=== PATIENT | male | born 1995 | race Caucasian/White ===

== ENCOUNTER 2017-04-14 20:58 | Inpatient (IN) | payer SELFPAY ==
[~2017-04-14] VITALS: Ht 177.8 cm; Wt 68.2 kg
[2017-04-14] MEDS ORDERED: ZOLPIDEM TARTRATE 10 MG TABLET PO PRN (22:00)
[2017-04-14] MEDS ORDERED: DiphenhydrAMINE HCL 50 MG/ML VIAL IM ONE (22:00)
[2017-04-14] MEDS ORDERED: HALOPERIDOL 5 MG TABLET PO PRN (22:00)
[2017-04-14] MEDS ORDERED: LORazepam 2 MG TABLET PO PRN (22:00)
[2017-04-14] MEDS ORDERED: LORazepam 2 MG/ML VIAL IM ONE (22:00)
[2017-04-14] MEDS ORDERED: HALOPERIDOL LACTATE 5 MG/ML VIAL IM ONE (22:00)
[2017-04-14 22:09] LABS: APPEARANCE,URINE CLEAR (CLEAR); BILIRUBIN,URINE NEGATIVE (NEGATIVE); GLUCOSE, URINE (UA) NEGATIVE (NEGATIVE); KETONES,URINE NEGATIVE (NEGATIVE); LEUKOCYTE ESTERASE ,URINE NEGATIVE (NEGATIVE); NITRATE,URINE NEGATIVE (NEGATIVE); OCCULT BLOOD,URINE NEGATIVE (NEGATIVE); PROTEIN,URINE NEGATIVE (NEGATIVE); UROBILINOGEN,URINE 0.2 mg/dL (<=1.0)
[2017-04-14 23:05] LABS: BASOPHILS % (AUTO) 0.2 % (0.0-2.0); HEMATOCRIT 35.7 % (41-53); HEMOGLOBIN 11.3 g/dL (13.5-17.5); LYMPHOCYTES # (AUTO) 1.6 K/uL (1.0-4.8); LYMPHOCYTES % (AUTO) 21.9 % (22.0-44.0); MEAN CORPUSCULAR HEMOGLOBIN 21.1 pg (26.0-34.0); MEAN CORPUSCULAR HGB CONC 31.5 G/dL (31.0-37.0); MEAN CORPUSCULAR VOLUME 67 fL (80-100); MONOCYTES # (AUTO) 0.4 K/uL (0.1-1.0); NEUTROPHILS # (AUTO) 5.2 K/uL (1.8-7.7); NEUTROPHILS % (AUTO) 69.9 % (40.0-70.0); PLATELET COUNT (AUTO) 159 K/uL (150-450); RED BLOOD CELL COUNT(AUTO) 5.34 MIL/uL (4.50-5.90); RED CELL DISTRIBUTION WIDTH 16.7 % (11.5-14.5)
[2017-04-14 23:15] LABS: ANION GAP 9 mmol/L (8-16); CALCIUM, TOTAL 8.4 mg/dL (8.8-10.5); CARBON DIOXIDE 26 mmol/L (22-29); CHLORIDE 109 mmol/L (98-107); GLOMERULAR FILTR. RATE CALC > 60 mL/min (>60); GLUCOSE,RANDOM 99 mg/dL (70-110); POTASSIUM 3.6 mmol/L (3.5-5.1); SODIUM SERUM 144 mmol/L (136-145); UREA NITROGEN, BLOOD 11 mg/dL (7-18)
[2017-04-14 23:29] LABS: ALANINE AMINOTRANSFERASE 51 U/L (12-78); ALBUMIN 3.8 g/dL (3.4-5.0); ALKALINE PHOSPHATASE 89 U/L (46-116); ASPARTATE AMINOTRANSFERASE 36 U/L (15-37); BILIRUBIN,TOTAL 0.3 mg/dL (0.1-1.0); CHOL/HDL RATIO 2.4 (4.2-7.3); CHOLESTEROL 142 mg/dL (131-200); HDL CHOLESTEROL 58 mg/dL (40-60); LDL CHOL (CALC.) 66 mg/dL (0-130); THYROID STIMULATING HORMONE 0.99 uIU/mL (0.36-3.74); TOTAL PROTEIN, SERUM 7.2 g/dL (6.4-8.2); TRIGLYCERIDES 88 mg/dL (15-150)
[2017-04-14 23:41] LABS: AMPHET/METH SCREEN,URINE NEGATIVE (NEGATIVE); BARBITURATE SCREEN, URINE NEGATIVE (NEGATIVE); BENZODIAZEPINES SCREEN,URINE NEGATIVE (NEGATIVE); CANNABINOID SCREEN,URINE POSITIVE (NEGATIVE); COCAINE SCREEN,URINE NEGATIVE (NEGATIVE); METHADONE SCREEN, URINE NEGATIVE (NEGATIVE); OPIATE SCREEN,URINE NEGATIVE (NEGATIVE)
[2017-04-14 23:43] LABS: PHENCYCLIDINE SCREEN,URINE NEGATIVE (NEGATIVE)
[2017-04-15] VITALS (13 sets, daily range): BP systolic 96–118; BP diastolic 60–72
[2017-04-15] MEDS ORDERED: INFLUENZA VIRUS VACCINE QVS 2017-18 (3YR+)/PF 60 MCG/0.5 ML SYRINGE IM ONE (02:30)
[2017-04-15] MEDS ORDERED: ALBUTEROL SULFATE HFA 90 MCG/PUFF 8 GM INHALER IH PRN (07:15)
[2017-04-15] MEDS ORDERED: BENZOCAINE/MENTHOL LOZENGE MM PRN (07:15)
[2017-04-15] MEDS ORDERED: BACITRACIN 28.4 GM OINTMENT TP PRN (07:15)
[2017-04-15] MEDS ORDERED: PETROLATUM,WHITE 71 GM JELLY TP PRN (07:15)
[2017-04-15] MEDS ORDERED: MAG HYDROX/AL HYDROX/SIMETH ES 30 ML SUSPENSION UDCUP PO PRN (07:15)
[2017-04-15] MEDS ORDERED: LOPERAMIDE HCL 2 MG CAPSULE PO PRN (07:15)
[2017-04-15] MEDS ORDERED: CloNIDine HCL 0.1 MG TABLET PO PRN (07:15)
[2017-04-15] MEDS ORDERED: MAGNESIUM HYDROXIDE SUSPENSION 30 ML UDCUP PO PRN (07:15)
[2017-04-15] MEDS ORDERED: ONDANSETRON HCL 4 MG TABLET PO PRN (07:15)
[2017-04-15] MEDS ORDERED: ACETAMINOPHEN 325 MG TABLET PO PRN (07:15)
[2017-04-15] MEDS: IBUPROFEN 600 MG TABLET PO PRN ×2 (09:01→17:24)
[2017-04-16 00:59] VITALS: BP 123/83
[2017-04-16 01:04] VITALS: BP 123/83
[2017-04-16 08:09] VITALS: BP 122/74
[2017-04-16 08:34] LABS: % IRON SATURATION 43.8 % (30-44)
[2017-04-16 11:22] VITALS: BP 128/74
[2017-04-16] MEDS: IBUPROFEN 600 MG TABLET PO PRN (11:24)
[2017-04-16 12:24] VITALS: BP 124/70
== END 2017-04-16 13:40 | disposition home or self-care (01) | DRG 885 ==
LOC: EMS 21:00 → B3A 23:54
PROVIDERS: ADMIT Psychiatry & Neurology Psychiatry; ATTEND Psychiatry & Neurology Psychiatry
PROC: 3E0234Z Introduction of Serum, Toxoid and Vaccine into Muscle, Percutaneous Approach (ICD-10-PCS; principal; 2017-04-16)
DX: F25.9 Schizoaffective disorder, unspecified (principal); E83.51 Hypocalcemia; D50.9 Iron deficiency anemia, unspecified; F17.200 Nicotine dependence, unspecified, uncomplicated; F10.10 Alcohol abuse, uncomplicated; F12.90 Cannabis use, unspecified, uncomplicated; F41.9 Anxiety disorder, unspecified; G47.00 Insomnia, unspecified; F29 Unspecified psychosis not due to a substance or known physiological condition; Z59.0 Homelessness; Z23 Encounter for immunization
CPT/HCPCS: 82306; 83540; 83550; 84443; 90471; 96372; 99285; G0480; J1200; J1630; J2060

== ENCOUNTER 2017-05-15 21:31 | Inpatient (IN) | payer OTHER ==
[~2017-05-15] VITALS: Ht 193 cm; Wt 80.7 kg
[2017-05-15 22:10] VITALS: BP 122/59
[2017-05-15 22:30] VITALS: BP 115/65
[2017-05-15] MEDS ORDERED: -PHARMACY VACCINE NOTE- MISC ONE (22:30)
[2017-05-15 22:36] VITALS: BP 115/65
[2017-05-15] MEDS: LORazepam 2 MG TABLET PO PRN (22:58)
[2017-05-16 06:40] VITALS: BP 106/69
[2017-05-16] MEDS: LORazepam 2 MG TABLET PO PRN ×3 (08:08→16:45)
[2017-05-16 08:25] VITALS: BP 114/69
[2017-05-16] MEDS ORDERED: LOPERAMIDE HCL 2 MG CAPSULE PO PRN (12:30)
[2017-05-16] MEDS ORDERED: MAG HYDROX/AL HYDROX/SIMETH ES 30 ML SUSPENSION UDCUP PO PRN (12:30)
[2017-05-16] MEDS ORDERED: BACITRACIN 28.4 GM OINTMENT TP PRN (12:30)
[2017-05-16] MEDS ORDERED: MAGNESIUM HYDROXIDE SUSPENSION 30 ML UDCUP PO PRN (12:30)
[2017-05-16] MEDS ORDERED: BENZOCAINE/MENTHOL LOZENGE MM PRN (12:30)
[2017-05-16] MEDS ORDERED: PETROLATUM,WHITE 71 GM JELLY TP PRN (12:30)
[2017-05-16] MEDS ORDERED: ALBUTEROL SULFATE HFA 90 MCG/PUFF 8 GM INHALER IH PRN (12:30)
[2017-05-16] MEDS ORDERED: ONDANSETRON HCL 4 MG TABLET PO PRN (12:30)
[2017-05-16] MEDS ORDERED: CloNIDine HCL 0.1 MG TABLET PO PRN (12:30)
[2017-05-16] MEDS ORDERED: ACETAMINOPHEN 325 MG TABLET PO PRN (12:30)
[2017-05-16] MEDS ORDERED: IBUPROFEN 600 MG TABLET PO PRN (12:30)
[2017-05-16 16:28] VITALS: BP 91/57
[2017-05-16] MEDS: ZOLPIDEM TARTRATE 10 MG TABLET PO PRN (21:06)
[2017-05-17 06:36] VITALS: BP 105/62
[2017-05-17 08:47] VITALS: BP 111/64
[2017-05-17] MEDS: LORazepam 2 MG TABLET PO PRN ×2 (08:51→16:06)
[2017-05-17] MEDS: CHOLECALCIFEROL (VIT D3) 1,000 UNITS TABLET PO SCH (08:51)
[2017-05-17 16:00] VITALS: BP 114/82
[2017-05-17] MEDS: HALOPERIDOL 5 MG TABLET PO PRN (16:06)
[2017-05-17] MEDS: QUEtiapine FUMARATE 200 MG TABLET PO SCH (20:42)
[2017-05-17] MEDS: ZOLPIDEM TARTRATE 10 MG TABLET PO PRN (20:42)
[2017-05-18 05:37] VITALS: BP 103/60
[2017-05-18 08:04] VITALS: BP 116/68
[2017-05-18] MEDS: CHOLECALCIFEROL (VIT D3) 1,000 UNITS TABLET PO SCH (09:08)
[2017-05-18] MEDS: LORazepam 2 MG TABLET PO PRN ×3 (09:08→17:19)
[2017-05-18] MEDS: HALOPERIDOL 5 MG TABLET PO PRN ×2 (12:58→17:19)
[2017-05-18 16:00] VITALS: BP 120/72
[2017-05-18] MEDS: ZOLPIDEM TARTRATE 10 MG TABLET PO PRN (20:11)
[2017-05-18] MEDS: QUEtiapine FUMARATE 200 MG TABLET PO SCH (20:11)
[2017-05-19 03:43] VITALS: BP 112/68
[2017-05-19 08:03] VITALS: BP 116/62
[2017-05-19] MEDS: CHOLECALCIFEROL (VIT D3) 1,000 UNITS TABLET PO SCH (08:38)
[2017-05-19] MEDS: LORazepam 2 MG TABLET PO PRN (10:28)
[2017-05-19] MEDS ORDERED: VITAD1000 PO (12:06)
[2017-05-19] MEDS ORDERED: QUET200T PO (12:06)
== END 2017-05-19 16:03 | disposition home or self-care (01) | DRG 885 ==
LOC: EDSTATUS 21:58 → B3A 22:08
PROVIDERS: ADMIT Psychiatry & Neurology Psychiatry; ATTEND Psychiatry & Neurology Psychiatry
DX: F25.9 Schizoaffective disorder, unspecified (principal); R45.851 Suicidal ideations; F32.9 Major depressive disorder, single episode, unspecified; F41.9 Anxiety disorder, unspecified; G47.00 Insomnia, unspecified; F17.200 Nicotine dependence, unspecified, uncomplicated; F12.10 Cannabis abuse, uncomplicated; E55.9 Vitamin D deficiency, unspecified; Z71.51 Drug abuse counseling and surveillance of drug abuser; Z71.6 Tobacco abuse counseling; Z72.89 Other problems related to lifestyle; Z71.41 Alcohol abuse counseling and surveillance of alcoholic; Z56.0 Unemployment, unspecified
CPT/HCPCS: 87081; 99285

== ENCOUNTER 2018-09-29 02:33 | Inpatient (IN) | payer OTHER, MEDICAID ==
[~2018-09-29] VITALS: Ht 188 cm; Wt 90.9 kg
[~2018-09-29 02:33] MED LIST: QUET200T PO; VITAD1000 PO
[2018-09-29] MEDS ORDERED: HYDR-4031 PO (03:05)
[2018-09-29] MEDS ORDERED: OLAN10TA3 PO (03:05)
[2018-09-29] MEDS ORDERED: LITH300CRT PO (03:05)
[2018-09-29 03:30] LABS: BASOPHILS % (AUTO) 0.4 % (0.0-2.0); EOSINOPHILS % (AUTO) 2.1 % (1.0-6.0); HEMATOCRIT 38.4 % (41-53); LYMPHOCYTES # (AUTO) 1.9 K/uL (1.0-4.8); LYMPHOCYTES % (AUTO) 21.4 % (22.0-44.0); MEAN CORPUSCULAR HEMOGLOBIN 21.2 pg (26.0-34.0); MEAN CORPUSCULAR HGB CONC 31.2 G/dL (31.0-37.0); MEAN CORPUSCULAR VOLUME 68 fL (80-100); MONOCYTES # (AUTO) 0.7 K/uL (0.1-1.0); MONOCYTES % (AUTO) 7.5 % (2.0-9.0); NEUTROPHILS % (AUTO) 68.6 % (40.0-70.0); PLATELET COUNT (AUTO) 194 K/uL (150-450); RED BLOOD CELL COUNT(AUTO) 5.66 MIL/uL (4.50-5.90); RED CELL DISTRIBUTION WIDTH 17.2 % (11.5-14.5)
[2018-09-29] MEDS ORDERED: LORazepam 2 MG/ML VIAL IM ONE (03:30)
[2018-09-29] MEDS ORDERED: HALOPERIDOL LACTATE 5 MG/ML VIAL IM ONE (03:30)
[2018-09-29 03:38] LABS: AMPHET/METH SCREEN,URINE POSITIVE (NEGATIVE); BARBITURATE SCREEN, URINE NEGATIVE (NEGATIVE); BENZODIAZEPINES SCREEN,URINE NEGATIVE (NEGATIVE); CANNABINOID SCREEN,URINE NEGATIVE (NEGATIVE); COCAINE SCREEN,URINE NEGATIVE (NEGATIVE); METHADONE SCREEN, URINE NEGATIVE (NEGATIVE); OPIATE SCREEN,URINE NEGATIVE (NEGATIVE); PHENCYCLIDINE SCREEN,URINE NEGATIVE (NEGATIVE)
[2018-09-29 03:40] LABS: ANION GAP 12 mmol/L (8-16); CARBON DIOXIDE 25 mmol/L (22-29); CHLORIDE 104 mmol/L (98-107); CREATININE 0.94 mg/dL (0.60-1.30); GLOMERULAR FILTR. RATE CALC > 60 mL/min (>60); GLUCOSE,RANDOM 92 mg/dL (70-110); POTASSIUM 3.4 mmol/L (3.5-5.1); SODIUM SERUM 141 mmol/L (136-145); UREA NITROGEN, BLOOD 12 mg/dL (7-18)
[2018-09-29 03:43] LABS: ALANINE AMINOTRANSFERASE 25 U/L (12-78); ALBUMIN 4.2 g/dL (3.4-5.0); ALKALINE PHOSPHATASE 89 U/L (46-116); ASPARTATE AMINOTRANSFERASE 25 U/L (15-37); TOTAL PROTEIN, SERUM 7.5 g/dL (6.4-8.2)
[2018-09-29 03:47] LABS: CALCIUM, TOTAL 9.1 mg/dL (8.8-10.5)
[2018-09-29] MEDS ORDERED: LORazepam 2 MG TABLET PO PRN (04:30)
[2018-09-29] MEDS ORDERED: ZOLPIDEM TARTRATE 10 MG TABLET PO PRN (04:30)
[2018-09-29] MEDS ORDERED: HALOPERIDOL 5 MG TABLET PO PRN (04:30)
[2018-09-29 06:30] VITALS: BP 118/70
[2018-09-29] MEDS ORDERED: MAG HYDROX/AL HYDROX/SIMETH ES 30 ML SUSPENSION UDCUP PO PRN (09:15)
[2018-09-29] MEDS ORDERED: BACITRACIN 28.4 GM OINTMENT TP PRN (09:15)
[2018-09-29] MEDS ORDERED: CloNIDine HCL 0.1 MG TABLET PO PRN (09:15)
[2018-09-29] MEDS ORDERED: PETROLATUM,WHITE 28 GM JELLY TP PRN (09:15)
[2018-09-29] MEDS ORDERED: DOCUSATE SODIUM 100 MG CAPSULE PO PRN (09:15)
[2018-09-29] MEDS ORDERED: BENZOCAINE/MENTHOL LOZENGE MM PRN (09:15)
[2018-09-29] MEDS ORDERED: OMEPRAZOLE 20 MG CAPSULE PO PRN (09:15)
[2018-09-29] MEDS ORDERED: LOPERAMIDE HCL 2 MG CAPSULE PO PRN (09:15)
[2018-09-29] MEDS ORDERED: ALBUTEROL SULFATE HFA 90 MCG/PUFF 8 GM INHALER IH PRN (09:15)
[2018-09-29] MEDS ORDERED: MAGNESIUM HYDROXIDE SUSPENSION 30 ML UDCUP PO PRN (09:15)
[2018-09-29] MEDS ORDERED: ONDANSETRON HCL 4 MG TABLET PO PRN (09:15)
[2018-09-29] MEDS ORDERED: ACETAMINOPHEN 325 MG TABLET PO PRN (09:15)
[2018-09-29] MEDS ORDERED: IBUPROFEN 600 MG TABLET PO PRN (09:15)
[2018-09-29 13:59] VITALS: BP 101/58
[2018-09-29 17:56] VITALS: BP 118/72
[2018-09-30 06:46] LABS: CHOL/HDL RATIO 2.6 (4.2-7.3)
[2018-09-30] MEDS ORDERED: CHOLECALCIFEROL (VIT D3) 1,000 UNITS TABLET PO SCH (09:00)
[2018-09-30 14:20] VITALS: BP 120/56
[2018-09-30] MEDS ORDERED: LITHIUM CARBONATE 300 MG CAPSULE PO SCH (17:00)
[2018-09-30] MEDS ORDERED: LITH300C3 PO (19:05)
[2018-09-30] MEDS ORDERED: POTASSIUM CHLORIDE 20 MEQ ER TABLET PO ONE (19:45)
[2018-09-30] MEDS ORDERED: QUEtiapine FUMARATE 200 MG TABLET PO SCH (21:00)
== END 2018-09-30 19:30 | disposition home or self-care (01) | DRG 885 ==
LOC: EMS 02:37 → 3EX 05:00
PROVIDERS: ADMIT Psychiatry & Neurology Psychiatry; ATTEND Psychiatry & Neurology Psychiatry
DX: F25.1 Schizoaffective disorder, depressive type (principal); R45.851 Suicidal ideations; F15.10 Other stimulant abuse, uncomplicated; F12.10 Cannabis abuse, uncomplicated; E55.9 Vitamin D deficiency, unspecified; G47.00 Insomnia, unspecified; F41.9 Anxiety disorder, unspecified; F17.200 Nicotine dependence, unspecified, uncomplicated
CPT/HCPCS: G0378; G0480; J1630; J2060

== ENCOUNTER 2020-02-06 13:34 | Emergency (ER) | payer MEDICAID, OTHER ==
[~2020-02-06] VITALS: Ht 190.5 cm; Wt 90.9 kg
[~2020-02-06 13:34] MED LIST changes: +LITH300C3 PO; -VITAD1000 PO
[2020-02-06 13:51] VITALS: BP 118/66
== END 2020-02-06 13:48 | disposition left against medical advice (07) ==
LOC: EMS 13:34
DX: T40.601A Poisoning by unspecified narcotics, accidental (unintentional), initial encounter (principal); F17.200 Nicotine dependence, unspecified, uncomplicated; F12.90 Cannabis use, unspecified, uncomplicated; Y92.89 Other specified places as the place of occurrence of the external cause

== ENCOUNTER 2020-05-18 00:52 | Emergency (ER) | payer OTHER ==
[~2020-05-18] VITALS: Ht 190.5 cm; Wt 43.4 kg
[2020-05-18] MEDS ORDERED: ACETAMINOPHEN 500 MG TABLET PO ONE (01:15)
[2020-05-18 06:15] VITALS: BP 108/68
== END 2020-05-18 06:45 | disposition home or self-care (01) ==
LOC: EMS 00:56
DX: F15.10 Other stimulant abuse, uncomplicated (principal); F17.210 Nicotine dependence, cigarettes, uncomplicated; Z59.0 Homelessness
CPT/HCPCS: 99285; Z7502; Z7610

== ENCOUNTER 2020-05-19 02:42 | Emergency (ER) | payer OTHER ==
[~2020-05-19] VITALS: Ht 190.5 cm; Wt 43.4 kg
[2020-05-19 02:47] VITALS: BP 120/84
== END 2020-05-19 04:15 | disposition home or self-care (01) ==
LOC: EMS 02:46
DX: F15.10 Other stimulant abuse, uncomplicated (principal)
CPT/HCPCS: 99283

== ENCOUNTER 2020-05-26 03:48 | Emergency (ER) | payer OTHER ==
[~2020-05-26] VITALS: Ht 188 cm; Wt 97.7 kg
[2020-05-26] MEDS ORDERED: ACETAMINOPHEN 500 MG TABLET PO ONE (04:15)
[2020-05-26 06:05] VITALS: BP 100/56
== END 2020-05-26 06:15 | disposition home or self-care (01) ==
LOC: EMS 03:52
DX: S62.306A Unspecified fracture of fifth metacarpal bone, right hand, initial encounter for closed fracture (principal); W22.01XA Walked into wall, initial encounter; Y93.89 Activity, other specified; Y92.89 Other specified places as the place of occurrence of the external cause; Y99.8 Other external cause status; M79.641 Pain in right hand; F17.210 Nicotine dependence, cigarettes, uncomplicated; F12.90 Cannabis use, unspecified, uncomplicated; F15.90 Other stimulant use, unspecified, uncomplicated
CPT/HCPCS: 99284; 73110-TC; 73130-TC; Z7502; Z7610

== ENCOUNTER 2020-05-29 02:45 | Emergency (ER) | payer OTHER ==
[~2020-05-29] VITALS: Ht 185.4 cm; Wt 104.5 kg
[2020-05-29 02:49] VITALS: BP 117/70
== END 2020-05-29 03:23 | disposition home or self-care (01) ==
LOC: EMS 02:46
DX: B35.3 Tinea pedis (principal)
CPT/HCPCS: 99282; 99283

== ENCOUNTER 2020-05-30 23:00 | Emergency (ER) | payer OTHER ==
[2020-05-31] MEDS ORDERED: AMOX TR/POT CLAV 500 MG/125 MG TABLET PO ONE (01:00)
== END 2020-05-31 01:13 | disposition home or self-care (01) ==
LOC: EMS 23:00
DX: L03.116 Cellulitis of left lower limb (principal); L03.115 Cellulitis of right lower limb; F17.210 Nicotine dependence, cigarettes, uncomplicated; F12.90 Cannabis use, unspecified, uncomplicated; F15.90 Other stimulant use, unspecified, uncomplicated; F31.9 Bipolar disorder, unspecified
CPT/HCPCS: 99283

== ENCOUNTER 2020-06-04 02:36 | Emergency (ER) | payer OTHER ==
[~2020-06-04] VITALS: Ht 190.5 cm; Wt 104.5 kg
[2020-06-04 03:05] VITALS: BP 112/62
== END 2020-06-04 03:25 | disposition home or self-care (01) ==
LOC: EMS 02:38
DX: S62.91XD Unspecified fracture of right hand, subsequent encounter for fracture with routine healing (principal); X58.XXXD Exposure to other specified factors, subsequent encounter
CPT/HCPCS: 99281; Z7502

== ENCOUNTER 2020-06-07 03:20 | Emergency (ER) | payer OTHER ==
[~2020-06-07] VITALS: Ht 167.6 cm; Wt 104.5 kg
[2020-06-07] MEDS ORDERED: IBUPROFEN 800 MG TABLET PO ONE (03:30)
[2020-06-07 03:47] VITALS: BP 137/62
== END 2020-06-07 03:45 | disposition home or self-care (01) ==
LOC: EMS 03:22
DX: S62.316A Displaced fracture of base of fifth metacarpal bone, right hand, initial encounter for closed fracture (principal); W25.XXXA Contact with sharp glass, initial encounter; Y93.89 Activity, other specified; Y92.89 Other specified places as the place of occurrence of the external cause; Y99.8 Other external cause status
CPT/HCPCS: 99283

== ENCOUNTER 2020-06-08 19:57 | Emergency (ER) | payer OTHER ==
[~2020-06-08] VITALS: Ht 185.4 cm; Wt 100.0 kg
[2020-06-09] MEDS ORDERED: IBUPROFEN 400 MG TABLET PO ONE (04:15)
[2020-06-09 05:13] VITALS: BP 129/74
== END 2020-06-09 05:49 | disposition home or self-care (01) ==
LOC: EMS 20:00
DX: S62.336A Displaced fracture of neck of fifth metacarpal bone, right hand, initial encounter for closed fracture (principal); F31.9 Bipolar disorder, unspecified; F20.9 Schizophrenia, unspecified; F12.90 Cannabis use, unspecified, uncomplicated; F19.90 Other psychoactive substance use, unspecified, uncomplicated; F17.210 Nicotine dependence, cigarettes, uncomplicated; Z59.0 Homelessness; W22.01XA Walked into wall, initial encounter; Y93.89 Activity, other specified; Y92.89 Other specified places as the place of occurrence of the external cause; Y99.8 Other external cause status
CPT/HCPCS: 99283

== ENCOUNTER 2020-06-10 12:58 | Emergency (ER) | payer OTHER ==
[~2020-06-10] VITALS: Ht 190.5 cm; Wt 93.0 kg
[2020-06-10 14:13] LABS: BASOPHILS % (AUTO) 0.2 % (0.0-2.0); EOSINOPHILS % (AUTO) 3.7 % (1.0-6.0); HEMATOCRIT 41.1 % (41-53); HEMOGLOBIN 13.1 g/dL (13.5-17.5); LYMPHOCYTES # (AUTO) 1.9 K/uL (1.0-4.8); LYMPHOCYTES % (AUTO) 19.2 % (22.0-44.0); MEAN CORPUSCULAR HEMOGLOBIN 21.4 pg (26.0-34.0); MEAN CORPUSCULAR HGB CONC 31.8 G/dL (31.0-37.0); MEAN CORPUSCULAR VOLUME 67 fL (80-100); MONOCYTES # (AUTO) 0.9 K/uL (0.1-1.0); MONOCYTES % (AUTO) 9.3 % (2.0-9.0); NEUTROPHILS # (AUTO) 6.6 K/uL (1.8-7.7); NEUTROPHILS % (AUTO) 67.6 % (40.0-70.0); PLATELET COUNT (AUTO) 191 K/uL (150-450); RED BLOOD CELL COUNT(AUTO) 6.11 MIL/uL (4.50-5.90); RED CELL DISTRIBUTION WIDTH 16.2 % (11.5-14.5)
[2020-06-10 14:21] LABS: ANION GAP 6 mmol/L (8-16); CALCIUM, TOTAL 9.5 mg/dL (8.8-10.5); CARBON DIOXIDE 31 mmol/L (22-29); CHLORIDE 103 mmol/L (98-107); CREATININE 1.09 mg/dL (0.60-1.30); GLOMERULAR FILTR. RATE CALC > 60 mL/min (>60); GLUCOSE,RANDOM 114 mg/dL (70-110); SODIUM SERUM 140 mmol/L (136-145); UREA NITROGEN, BLOOD 13 mg/dL (7-18)
[2020-06-10 14:46] LABS: ALANINE AMINOTRANSFERASE 32 U/L (12-78); ALBUMIN 3.7 g/dL (3.4-5.0); ALKALINE PHOSPHATASE 80 U/L (46-116); ASPARTATE AMINOTRANSFERASE 15 U/L (15-37); BILIRUBIN,TOTAL 0.4 mg/dL (0.1-1.0); CREATINE KINASE, TOTAL ONLY 100 U/L (39-308); TOTAL PROTEIN, SERUM 7.2 g/dL (6.4-8.2)
[2020-06-10 16:46] LABS: APPEARANCE,URINE CLEAR (CLEAR); BILIRUBIN,URINE NEGATIVE (NEGATIVE); GLUCOSE, URINE (UA) NEGATIVE (NEGATIVE); KETONES,URINE NEGATIVE (NEGATIVE); LEUKOCYTE ESTERASE ,URINE NEGATIVE (NEGATIVE); NITRATE,URINE NEGATIVE (NEGATIVE); OCCULT BLOOD,URINE NEGATIVE (NEGATIVE); PH,URINE 6.5 (5.0-8.0); PROTEIN,URINE NEGATIVE (NEGATIVE); UROBILINOGEN,URINE 0.2 mg/dL (<=1.0)
[2020-06-10 16:51] LABS: AMPHET/METH SCREEN,URINE POSITIVE (NEGATIVE); BARBITURATE SCREEN, URINE NEGATIVE (NEGATIVE); BENZODIAZEPINES SCREEN,URINE NEGATIVE (NEGATIVE); CANNABINOID SCREEN,URINE NEGATIVE (NEGATIVE); COCAINE SCREEN,URINE NEGATIVE (NEGATIVE); METHADONE SCREEN, URINE NEGATIVE (NEGATIVE); OPIATE SCREEN,URINE NEGATIVE (NEGATIVE)
[2020-06-10 17:00] VITALS: BP 107/55
[2020-06-10 17:07] LABS: PHENCYCLIDINE SCREEN,URINE NEGATIVE (NEGATIVE)
== END 2020-06-10 17:45 | disposition home or self-care (01) ==
LOC: EMS 12:58
DX: F15.10 Other stimulant abuse, uncomplicated (principal); F31.9 Bipolar disorder, unspecified; F20.9 Schizophrenia, unspecified; F12.90 Cannabis use, unspecified, uncomplicated; F17.210 Nicotine dependence, cigarettes, uncomplicated
CPT/HCPCS: 36415; 80053; 80307; 81003; 82550; 85025; 93005; 99284; G0480

== ENCOUNTER 2021-01-30 04:46 | Emergency (ER) | payer OTHER ==
[~2021-01-30] VITALS: Ht 190.5 cm; Wt 100.0 kg
[2021-01-30] MEDS ORDERED: ZINC OXIDE 20% 30 GM OINTMENT TP ONE (05:30)
[2021-01-30] MEDS ORDERED: IBUPROFEN 800 MG TABLET PO ONE (05:30)
[2021-01-30 05:55] VITALS: BP 123/66
== END 2021-01-30 05:57 | disposition home or self-care (01) ==
LOC: EMS 04:48
DX: S00.33XA Contusion of nose, initial encounter (principal); S90.822A Blister (nonthermal), left foot, initial encounter; S90.821A Blister (nonthermal), right foot, initial encounter; F15.10 Other stimulant abuse, uncomplicated; F17.210 Nicotine dependence, cigarettes, uncomplicated; F31.9 Bipolar disorder, unspecified; F12.90 Cannabis use, unspecified, uncomplicated; F25.9 Schizoaffective disorder, unspecified; Z59.00 Homelessness unspecified; W50.0XXA Accidental hit or strike by another person, initial encounter; Y93.89 Activity, other specified; Y92.89 Other specified places as the place of occurrence of the external cause; Y99.8 Other external cause status
CPT/HCPCS: 99282; 99283

== ENCOUNTER 2021-03-09 18:46 | Emergency (ER) | payer OTHER ==
[~2021-03-09] VITALS: Ht 193 cm; Wt 90.9 kg
[2021-03-09 19:21] LABS: BASOPHILS % (AUTO) 0.4 % (0.0-2.0); HEMATOCRIT 40.1 % (41-53); HEMOGLOBIN 12.8 g/dL (13.5-17.5); LYMPHOCYTES % (AUTO) 37.7 % (22.0-44.0); MEAN CORPUSCULAR HEMOGLOBIN 21.2 pg (26.0-34.0); MEAN CORPUSCULAR HGB CONC 31.9 G/dL (31.0-37.0); MEAN CORPUSCULAR VOLUME 67 fL (80-100); MONOCYTES # (AUTO) 0.6 K/uL (0.1-1.0); MONOCYTES % (AUTO) 11.5 % (2.0-9.0); NEUTROPHILS # (AUTO) 2.5 K/uL (1.8-7.7); NEUTROPHILS % (AUTO) 47.4 % (40.0-70.0); PLATELET COUNT (AUTO) 199 K/uL (150-450); RED BLOOD CELL COUNT(AUTO) 6.02 MIL/uL (4.50-5.90); RED CELL DISTRIBUTION WIDTH 16.2 % (11.5-14.5)
[2021-03-09 19:32] LABS: ANION GAP 6 mmol/L (8-16); CALCIUM, TOTAL 9.1 mg/dL (8.8-10.5); CARBON DIOXIDE 32 mmol/L (22-29); CHLORIDE 103 mmol/L (98-107); CREATININE 0.99 mg/dL (0.60-1.30); GLOMERULAR FILTR. RATE CALC > 60 mL/min (>60); GLUCOSE,RANDOM 94 mg/dL (70-110); POTASSIUM 3.8 mmol/L (3.5-5.1); SODIUM SERUM 141 mmol/L (136-145); UREA NITROGEN, BLOOD 15 mg/dL (7-18)
[2021-03-09 19:38] LABS: ALANINE AMINOTRANSFERASE 36 U/L (12-78); ALBUMIN 4.2 g/dL (3.4-5.0); ALKALINE PHOSPHATASE 87 U/L (46-116); ASPARTATE AMINOTRANSFERASE 26 U/L (15-37); BILIRUBIN,TOTAL 0.4 mg/dL (0.1-1.0); TOTAL PROTEIN, SERUM 7.8 g/dL (6.4-8.2)
[2021-03-09 20:03] VITALS: BP 114/62
== END 2021-03-09 21:48 | disposition home or self-care (01) ==
LOC: EMS 19:01
DX: R53.83 Other fatigue (principal); F15.90 Other stimulant use, unspecified, uncomplicated; F20.9 Schizophrenia, unspecified
CPT/HCPCS: 36415; 80053; 85025; 99283; G0480

== ENCOUNTER 2021-03-11 05:10 | Emergency (ER) | payer OTHER ==
[~2021-03-11] VITALS: Ht 190.5 cm; Wt 90.9 kg
[2021-03-11 06:13] VITALS: BP 136/81
[2021-03-11] MEDS ORDERED: ONDANSETRON HCL 4 MG TABLET PO ONE (06:30)
== END 2021-03-11 07:00 | disposition home or self-care (01) ==
LOC: EMS 05:11
DX: F15.90 Other stimulant use, unspecified, uncomplicated (principal); R11.0 Nausea; F20.9 Schizophrenia, unspecified; Z59.00 Homelessness unspecified
CPT/HCPCS: 99283; Q0162

== ENCOUNTER 2021-03-12 04:17 | Emergency (ER) | payer OTHER ==
[~2021-03-12] VITALS: Ht 195.6 cm; Wt 100.0 kg
[2021-03-12 06:27] VITALS: BP 128/60
== END 2021-03-12 07:00 | disposition home or self-care (01) ==
LOC: EMS 04:18
DX: F15.10 Other stimulant abuse, uncomplicated (principal); Z20.9 Contact with and (suspected) exposure to unspecified communicable disease
CPT/HCPCS: 99283; Z7502

== ENCOUNTER 2021-03-14 04:16 | Emergency (ER) | payer OTHER ==
[~2021-03-14] VITALS: Ht 195.6 cm; Wt 95.5 kg
[2021-03-14] MEDS ORDERED: ACETAMINOPHEN 500 MG TABLET PO ONE (07:15)
[2021-03-14 08:02] VITALS: BP 130/68
== END 2021-03-14 08:05 | disposition home or self-care (01) ==
LOC: EMS 04:18
DX: M54.50 Low back pain, unspecified (principal)
CPT/HCPCS: 99283

== ENCOUNTER 2022-02-20 00:51 | Emergency (ER) | payer OTHER ==
[~2022-02-20] VITALS: Ht 195.6 cm; Wt 95.0 kg
[2022-02-20] MEDS ORDERED: METH-624 PO (01:05)
[2022-02-20 01:15] VITALS: BP 135/77
== END 2022-02-20 01:45 | disposition home or self-care (01) ==
LOC: EMS 00:52
DX: F15.10 Other stimulant abuse, uncomplicated (principal); Z59.00 Homelessness unspecified; F20.9 Schizophrenia, unspecified; F90.9 Attention-deficit hyperactivity disorder, unspecified type
CPT/HCPCS: 99281; Z7502

== ENCOUNTER 2024-02-20 00:10 | Emergency (ER) | payer OTHER ==
[~2024-02-20] VITALS: Ht 188 cm; Wt 110.0 kg
[2024-02-20 00:31] VITALS: BP 112/72; PULSE 106; RESP 16; TEMP 97.5; O2SAT 100
[2024-02-20] MEDS: BACITRACIN 28 GM OINTMENT TP ONE (01:08)
[2024-02-20] MEDS: ACETAMINOPHEN 500 MG TABLET PO ONE (01:08)
[2024-02-20] MEDS ORDERED: ACET-3385 PO (01:15)
== END 2024-02-20 01:26 | disposition home or self-care (01) ==
LOC: EDBD → EMS 00:11
DX: S90.812A Abrasion, left foot, initial encounter (principal); S90.811A Abrasion, right foot, initial encounter; F12.90 Cannabis use, unspecified, uncomplicated; F25.9 Schizoaffective disorder, unspecified; F15.90 Other stimulant use, unspecified, uncomplicated; X50.3XXA Overexertion from repetitive movements, initial encounter; Y93.89 Activity, other specified; Y92.89 Other specified places as the place of occurrence of the external cause; Y99.8 Other external cause status
CPT/HCPCS: 99283

== ENCOUNTER 2024-02-22 19:35 | Emergency (ER) | payer OTHER ==
[~2024-02-22] VITALS: Ht 188 cm; Wt 110.0 kg
[~2024-02-22 19:35] MED LIST changes: +ACET-3385 PO; -LITH300C3 PO; -QUET200T PO
[2024-02-22 19:47] VITALS: BP 109/68; PULSE 109; RESP 16; TEMP 97.5; O2SAT 97
== END 2024-02-22 20:35 | disposition left against medical advice (07) ==
LOC: EMS 19:35 → EDBD 19:35 → EMS 20:35
DX: R30.0 Dysuria (principal); Z53.21 Procedure and treatment not carried out due to patient leaving prior to being seen by health care provider

== ENCOUNTER 2024-02-25 13:07 | Emergency (ER) | payer OTHER ==
[~2024-02-25] VITALS: Ht 193 cm; Wt 118.2 kg
[2024-02-25 13:14] VITALS: BP 108/57; PULSE 98; RESP 18; TEMP 98; O2SAT 99
[2024-02-25] MEDS ORDERED: SULF-261 PO (14:01)
[2024-02-25] MEDS ORDERED: CEPH-558 PO (14:01)
[2024-02-25] MEDS: CEPHALEXIN MONOHYDRATE 500 MG CAPSULE PO ONE (14:10)
[2024-02-25] MEDS: BACITRACIN 28 GM OINTMENT TP ONE (14:10)
[2024-02-25] MEDS: SULFAMETHOX/TRIMETH DS 800-160 MG/TABLET PO ONE (14:10)
== END 2024-02-25 14:13 | disposition home or self-care (01) ==
LOC: EMS 13:07
DX: S30.91XD Unspecified superficial injury of lower back and pelvis, subsequent encounter (principal); F25.9 Schizoaffective disorder, unspecified; F12.90 Cannabis use, unspecified, uncomplicated; F15.90 Other stimulant use, unspecified, uncomplicated; X58.XXXD Exposure to other specified factors, subsequent encounter
CPT/HCPCS: 99284; Z7502; Z7610

== ENCOUNTER 2024-12-24 14:38 | Emergency (ER) | payer OTHER ==
[~2024-12-24 14:38] MED LIST changes: +AMOX-457 PO; +IBUP-1492 PO; +TERB30CR8 TP
[2024-12-24] MEDS: LIDOCAINE/PF 1% 2 ML VIAL IM ONE (16:57)
[2024-12-24] MEDS: CefTRIAXone SODIUM 1 GM/VIAL IM ONE (16:57)
== END 2024-12-24 17:00 ==
LOC: EMS 14:38
DX: L02.811 Cutaneous abscess of head [any part, except face] (principal); L03.211 Cellulitis of face; F25.9 Schizoaffective disorder, unspecified; F17.210 Nicotine dependence, cigarettes, uncomplicated; Z65.3 Problems related to other legal circumstances; Z79.899 Other long term (current) drug therapy
CPT/HCPCS: 10060; 99283

== ENCOUNTER 2025-02-22 01:47 | Emergency (ER) | payer MEDICAID, OTHER ==
[~2025-02-22] VITALS: Ht 188 cm; Wt 95.5 kg
[2025-02-22 02:05] VITALS: TEMP 98
[2025-02-22] MEDS: ACETAMINOPHEN 500 MG TABLET PO ONE (03:25)
[2025-02-22 04:00] VITALS: BP 105/66; PULSE 98; RESP 15; O2SAT 100
== END 2025-02-22 05:23 | disposition home or self-care (01) ==
LOC: EMS 01:47
DX: S09.90XA Unspecified injury of head, initial encounter (principal); S00.31XA Abrasion of nose, initial encounter; F25.9 Schizoaffective disorder, unspecified; F17.210 Nicotine dependence, cigarettes, uncomplicated; Z98.890 Other specified postprocedural states; Z79.899 Other long term (current) drug therapy; Y08.89XA Assault by other specified means, initial encounter; Y93.89 Activity, other specified; Y92.89 Other specified places as the place of occurrence of the external cause; Y99.8 Other external cause status
CPT/HCPCS: 99282; Z7502; Z7610